=== PATIENT | female | born 1955 | race Caucasian/White ===

== ENCOUNTER 2019-08-11 10:24 | Inpatient (IN) ==
[2019-08-11] MEDS ORDERED: 0.9 % SODIUM CHLORIDE 1,000 ML IV ONE (10:50)
[2019-08-11] MEDS ORDERED: ONDANSETRON 4 MG/2 ML VIAL IV ONE (10:50)
[2019-08-11] MEDS ORDERED: metroNIDAZOLE 500 MG/100 ML BAG IV ONE (10:53)
[2019-08-11] MEDS ORDERED: CIPROFLOXACIN 400 MG/200 ML BAG IV ONE (10:54)
[2019-08-11] MEDS ORDERED: HYDROmorphone* 2 MG/ML VIAL IV SCH (11:00)
--- NOTE | 2019-08-11 11:05 | Emergency Department Note ---
Abdominal Pain HPI - General Chief Complaint: Flank Pain Stated Complaint: left flank pain nausea vomiting Time Seen by Provider: 08/11/19 10:34 Source: patient Mode of arrival: ambulatory Limitations: no limitations - History of Present Illness HPI Narrative: 64-year-old female presents with intractable left flank pain, and intractable nausea and vomiting. She was seen here on Monday and diagnosed with kidney stones as well as diverticulitis. States she just cannot stop vomiting and her pain is out of control. She cannot keep any of her medications down because of the vomiting as well. This includes her antibiotics. States her temperature go t up to 102.8 last night as well. Feels like she is getting worse rather than better. States she just cannot keep anything down. No diarrhea. No dysuria or frequency. Has been taking Zofran at home with no relief. Has tried to keep down the Flagyl and Cipro and it pain medication without success - Related Data Home Medications Medication Instructions Recorded Confirmed cholecalciferol (vitamin D3) 125 5,000 unit PO QDAY cap 10/20/16 06/14/19 mcg (5,000 unit) capsule omega-3 fatty acids 1,000 mg 1,000 mg PO QDAY 10/20/16 06/14/19 capsule lactobacillus combination no.8 3 3,000 mmu cells PO QDAY 06/14/19 billion cell capsule potassium gluconate 600 mg (99 mg) 600 mg PO QDAY 06/14/19 06/14/19 tablet Previous Rx's Medication Instructions Recorded simvastatin 20 mg tablet 20 mg PO QDAY #30 tab 06/08/18 blood pressure monitor See Rx Instructions .ROUTE 05/21/19 .MEDSUPPLY #1 each diltiazem HCl 120 mg 120 mg PO QAM #90 cap 06/14/19 capsule,extended release 24 hr Ciprofloxacin [Cipro] 500 mg PO BID #20 tab 08/09/19 Promethazine [Phenergan] 25 mg PO Q4-6HP PRN #20 tab 08/09/19 metroNIDAZOLE [Metronidazole] 500 mg PO TID #30 tab 08/09/19 oxyCODONE HCL [Oxycodone HCl] 5 mg PO Q4HP PRN #16 tab 08/09/19 Allergies Allergy/AdvReac Type Severity Reaction Status Date / Time Erythromycin Base Allergy Unknown Vomiting Verified 08/09/19 15:23 seafood Allergy Unknown Gastrointestinal Uncoded 06/14/19 12:48 Upset, itching Review of Systems All systems ED: reviewed and negative except as stated. Abdominal Pain PMH - Past Medical History [facility] Narrative: Medical History (Last Updated 08/09/19 @ 18:02 by Rodrigo Ann DO) Hypertension, essential (Chronic ~12/13/94) Hyperlipidemia (Chronic ~1994) Obesity (BMI 30.0-34.9) (Chronic) Anxiety, generalized (Chronic) Menopausal symptoms (Chronic) Recurrent sinus infections (Chronic) Situational depression (Chronic 1994) Mammogram normal (Acute) Cervical cancer (Resolved ~01/1983) Encounter for Health Maintenance Examination in Adult (Resolved) Gallbladder problem (Resolved 2007) Migraines (Resolved ~1995) Pneumonia (Resolved) Shingles (Resolved 12/2008) Sialadenitis (Resolved) Skin rash (Inactive) Vaginal discharge (Inactive) Past Surgical History (Last Reviewed 06/14/19 @ 12:54 by Jodi Pollock PA-C) H/O colonoscopy (Chronic 09/15/06) H/O: hysterectomy (Chronic 06/1983) History of cholecystectomy (Chronic 10/16/08) History of left knee surgery (Chronic 07/1989) - Social History Smoking status: Never smoker Alcohol use: Reports: Occasionally Drug use: Reports: none Physical Exam Limitations: no limitations General appearance: alert, tearful, other (Writhing around in pain) Head: atraumatic, normocephalic, normal inspection Eye: Present: normal appearance. Absent: conjunctival injection ENT: Present: mucous membranes moist Chest: Present: symmetric chest wall rise Respiratory: Present: normal lung sounds bilaterally. Absent: respiratory distress, rales/crackles, wheezes, accessory muscle use Cardiovascular: Present: regular rate, normal heart sounds Abdominal: Present: soft, tenderness (Left lower quadrant as well as left flank), normal bowel sounds. Absent: distention, guarding, rebound Back: Present: CVA tenderness (L). Absent: CVA tenderness (R) Neurological: Present: alert, oriented X3 Psychiatric: Present: normal affect Skin: Present: warm, dry, intact, normal color Course Course Narrative: At 13[address] I did speak with Dr[address] Renae who agrees to consult on this patient tomorrow morning. At 1310 I did speak with the hospitalist, Dr. Chilel who agrees to accept patient. Vital Signs Temperature 97.1 F 08/11/19 10:26 Pulse Rate 77 08/11/19 10:26 Respiratory Rate 18 08/11/19 10:26 Blood Pressure 143/62 08/11/19 10:26 Pulse Oximetry (%) 98 08/11/19 10:26 Temperature 97.1 F 08/11/19 10:26 Pulse Rate 66 08/11/19 11:32 Respiratory Rate 14 08/11/19 11:17 Blood Pressure 155/75 08/11/19 11:32 Pulse Oximetry (%) 100 08/11/19 11:32 Abdominal Pain - Lab Data Result diagrams: 08/11/19 11:03 08/11/19 11:03 Lab Results 08/11/19 08/11/19 08/11/19 Range/Units 11:03 11:03 11:03 WBC 14.9 H (4.50-11.00) K/mcL RBC 4.83 (3.59-5.38) M/mcL Hgb 13.7 (11.2-15.7) g/dL Hct 41.2 (34.1-44.9) % MCV 85.3 (80.0-100.0) fL MCH 28.4 (26.0-34.0) pg MCHC 33.3 (31.0-36.0) g/dL RDW 12.8 (11.5-14.5) % Plt Count 341 (140-440) K/mcL MPV 9.9 (7.4-10.4) fL Gran % 83.1 H (38.0-78.0) % Lymph % (Auto) 12.9 L (15.5-49.0) % Hitchcock % (Auto) 3.8 (1.0-12.0) % Eos % (Auto) 0 (0.0-7.0) % Baso % (Auto) 0.2 (0.0-2.0) % Gran # 12.39 H (1.80-8.00) K/mcL Lymph # (Auto) 1.92 (1.50-4.80) K/mcL Hitchcock # (Auto) 0.56 (0.10-0.90) K/mcL Eos # (Auto) 0 (0.00-0.70) K/mcL Baso # (Auto) 0.03 (0.00-0.30) K/mcL VBG Lactic Acid 2.3 H (0.5-2.0) mmol/L Sodium 133 (133-145) mmol/L Potassium 4.7 (3.3-5.1) mmol/L Chloride 95 L (96-108) mmol/L Carbon Dioxide 19 L (22-30) mmol/L Anion Gap 19.0 H (8-16) BUN 19 (8-23) mg/dl Creatinine 1.2 H (0.6-1.1) mg/dl GFR Calculation 47 Glucose 144 H (70-105) mg/dL Calcium 9.7 (8.6-10.4) mg/dl Total Bilirubin 0.7 (0.0-1.0) mg/dL AST 18 (0-37) U/l ALT 14 (0-40) U/l Alkaline Phosphatase 95 (39-117) U/L Total Protein 8.3 (5.9-8.4) gm/dL Albumin 3.9 (3.2-5.2) gm/dL Globulin 4.4 H (2.2-3.7) gm/dL Albumin/Globulin Ratio 0.9 L (1.0-2.3) Procalcitonin (<0.10) ng/mL 08/11/19 Range/Units 11:03 WBC (4.50-11.00) K/mcL RBC (3.59-5.38) M/mcL Hgb (11.2-15.7) g/dL Hct (34.1-44.9) % MCV (80.0-100.0) fL MCH (26.0-34.0) pg MCHC (31.0-36.0) g/dL RDW (11.5-14.5) % Plt Count (140-440) K/mcL MPV (7.4-10.4) fL Gran % (38.0-78.0) % Lymph % (Auto) (15.5-49.0) % Hitchcock % (Auto) (1.0-12.0) % Eos % (Auto) (0.0-7.0) % Baso % (Auto) (0.0-2.0) % Gran # (1.80-8.00) K/mcL Lymph # (Auto) (1.50-4.80) K/mcL Hitchcock # (Auto) (0.10-0.90) K/mcL Eos # (Auto) (0.00-0.70) K/mcL Baso # (Auto) (0.00-0.30) K/mcL VBG Lactic Acid (0.5-2.0) mmol/L Sodium (133-145) mmol/L Potassium (3.3-5.1) mmol/L Chloride (96-108) mmol/L Carbon Dioxide (22-30) mmol/L Anion Gap (8-16) BUN (8-23) mg/dl Creatinine (0.6-1.1) mg/dl GFR Calculation Glucose (70-105) mg/dL Calcium (8.6-10.4) mg/dl Total Bilirubin (0.0-1.0) mg/dL AST (0-37) U/l ALT (0-40) U/l Alkaline Phosphatase (39-117) U/L Total Protein (5.9-8.4) gm/dL Albumin (3.2-5.2) gm/dL Globulin (2.2-3.7) gm/dL Albumin/Globulin Ratio (1.0-2.3) Procalcitonin 0.10 (<0.10) ng/mL Disposition 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
[2019-08-11 12:05] LABS: Basophils # (Auto) 0.03 K/mcL (0.00-0.30); Basophils % (Auto) 0.2 % (0.0-2.0); Eosinophils # (Auto) 0 K/mcL (0.00-0.70); Eosinophils % (Auto) 0 % (0.0-7.0); Granulocytes % (Auto) 83.1 % (38.0-78.0); Hematocrit 41.2 % (34.1-44.9); Hemoglobin 13.7 g/dL (11.2-15.7); Lymphocytes # (Auto) 1.92 K/mcL (1.50-4.80); Lymphocytes % (Auto) 12.9 % (15.5-49.0); Mean Cell Volume 85.3 fL (80.0-100.0); Mean Corpuscular HGB Conc 33.3 g/dL (31.0-36.0); Mean Platelet Volume 9.9 fL (7.4-10.4); Monocytes # (Auto) 0.56 K/mcL (0.10-0.90); Monocytes % (Auto) 3.8 % (1.0-12.0); Platelet Count 341 K/mcL (140-440); RBC 4.83 M/mcL (3.59-5.38); Red Cell Distribution Width 12.8 % (11.5-14.5); WBC 14.9 K/mcL (4.50-11.00)
[2019-08-11 12:25] LABS: ALT/SGPT 14 U/l (0-40); AST/SGOT 18 U/l (0-37); Albumin 3.9 gm/dL (3.2-5.2); Albumin/Globulin Ratio 0.9 (1.0-2.3); Alkaline Phosphatase 95 U/L (39-117); Bilirubin,Total 0.7 mg/dL (0.0-1.0); Blood Urea Nitrogen 19 mg/dl (8-23); Calcium 9.7 mg/dl (8.6-10.4); Carbon Dioxide 19 mmol/L (22-30); Globulin 4.4 gm/dL (2.2-3.7); Glomerular Filtration Rate 47; Glucose 144 mg/dL (70-105)
[2019-08-11 12:33] LABS: Chloride 95 mmol/L (96-108)
[2019-08-11] MEDS ORDERED: morphine 4 MG/ML VIAL IV PRN (14:36)
[2019-08-11] MEDS ORDERED: ACETAMINOPHEN 325 MG TABLET PO PRN (14:36)
[2019-08-11] MEDS ORDERED: ONDANSETRON 4 MG/2 ML VIAL IV PRN (14:36)
[2019-08-11] MEDS ORDERED: HYDROmorphone* 2 MG/ML VIAL IV PRN (14:36)
[2019-08-11] MEDS ORDERED: hydrALAZINE 20 MG/ML VIAL IV PRN (14:50)
--- NOTE | 2019-08-11 15:01 | Internal Med History&Physical ---
Medical - H&P: [facility] Patient information: Note initiated : 08/11/19 at 2:54 pm Service Date, if different from initiated Date: [] Patient: Siria Villarreal a 64 y/o F admitted on 08/11/19 for left flank pain nausea vomiting. Chief Complaint: [Abdominal pain for 1 week] History of present illness: Ms. Villarreal is a 64 year old F with a history of high blood pressure who presented to the ER due to abdominal pain for 1 week. Patient states that she has been having left lower abdominal pain associated with nausea and vomiting for 1 week. The pain is a sharp constant pain and 9 out of 10 in severity. Patient also states that she has been having watery diarrhea, 4-5 times per day for 4 days. Days ago she started to feel left flank pain which is sharp in nature. She may has some fever and chills at times. Otherwise she denies headache, dizziness, chest pain, shortness of breath, or dysuria. Patient came to the ER on Monday (2 days ago), she was diagnosed with diverticulitis and kidney stone which were treated oral antibiotics. Today her nausea and vomiting are so severe. She cannot take her oral medications. Review of systems: Positive for abdominal pain, nausea, vomiting, diarrhea. All other systems were reviewed and are negative. Medical - H&P: [facility] Medical history: High blood pressure Family history: reviewed and not pertinent (Mother has a atrial fibrillation; father and heart problems) Social history: Denies a smoking, drinking alcohol or using drugs. Medical - H&P: Meds Home Medications Medication Instructions Recorded Confirmed Type cholecalciferol (vitamin D3) 125 5,000 unit PO QDAY cap 10/20/16 06/14/19 History mcg (5,000 unit) capsule omega-3 fatty acids 1,000 mg 1,000 mg PO QDAY 10/20/16 06/14/19 History capsule simvastatin 20 mg tablet 20 mg PO QDAY #30 tab 06/08/18 06/14/19 Rx blood pressure monitor See Rx Instructions .ROUTE 05/21/19 06/14/19 Rx .MEDSUPPLY #1 each diltiazem HCl 120 mg 120 mg PO QAM #90 cap 06/14/19 06/14/19 Rx capsule,extended release 24 hr lactobacillus combination no.8 3 3,000 mmu cells PO QDAY 06/14/19 History billion cell capsule potassium gluconate 600 mg (99 mg) 600 mg PO QDAY 06/14/19 06/14/19 History tablet Ciprofloxacin [Cipro] 500 mg PO BID #20 tab 08/09/19 Rx Promethazine [Phenergan] 25 mg PO Q4-6HP PRN #20 tab 08/09/19 Rx metroNIDAZOLE [Metronidazole] 500 mg PO TID #30 tab 08/09/19 Rx oxyCODONE HCL [Oxycodone HCl] 5 mg PO Q4HP PRN #16 tab 08/09/19 Rx Allergies Allergy/AdvReac Type Severity Reaction Status Date / Time Erythromycin Base Allergy Unknown Vomiting Verified 08/09/19 15:23 seafood Allergy Unknown Gastrointestinal Uncoded 06/14/19 12:48 Upset, itching Medical - H&P: Exam - Constitutional Vitals: Temp Pulse Resp BP Pulse Ox 97.8 F 79 18 128/75 93 08/11/19 13:52 08/11/19 13:52 08/11/19 13:52 08/11/19 13:52 08/11/19 13:52 - Other Additional findings: General - NAD, sitting up in bed, well groomed Eyes - PERRLA, EOM intact ENT no rhinorrhea, no noticeable or palpable swelling, no redness or rash around throat or on face Neck supple, no JVD, no thyromegaly Respiratory: Lungs - no use of accessory muscles, clear to auscultation, no crackles or wheezes. Cardiovascular - RRR no m/r/g, GI - Normal bowel sounds, no distended, soft. tenderness over LLQ. No CVA tenderness Extremeties - No edema, cyanosis or clubbing Hemo/lymphatic/immune no lymphadenopathy Neurological Alert and oriented x 3, CN 2-12 grossly intact. Psychiatry flat affect Medical - H&P: Reslt - Labs CBC & Chem 7: 08/11/19 11:03 08/11/19 11:03 Labs: Short CBC 08/11/19 Range/Units 11:03 WBC 14.9 H (4.50-11.00) K/mcL Hgb 13.7 (11.2-15.7) g/dL Hct 41.2 (34.1-44.9) % Plt Count 341 (140-440) K/mcL BMP 08/11/19 11:03 Sodium 133 Potassium 4.7 Chloride 95 L Carbon Dioxide 19 L BUN 19 Creatinine 1.2 H Glucose 144 H Calcium 9.7 Liver Function 08/11/19 Range/Units 11:03 Total Bilirubin 0.7 (0.0-1.0) mg/dL AST 18 (0-37) U/l ALT 14 (0-40) U/l Alkaline Phosphatase 95 (39-117) U/L Albumin 3.9 (3.2-5.2) gm/dL Medical - H&P: A/P - Narrative A/P Narrative: Assessment: 1. Acute diverticulitis 2. Kidney stone with mild hydronephrosis 3. DIANA 4. HTN 5. Pulmonary nodule Plan: 1. Abdominal CT showed Acute diverticulitis in the mid descending colon with a phlegmon developing around a large diverticulum. 4 mm calculus in the left ureteropelvic junction causing mild hydronephrosis Blood culture Zosyn N.p.o. IV Fluid Pain management including IV dilaudid 2. Urology consulted for Kidney stone with mild hydronephrosis 3. Creatinine mildly elevated. Could be due to prerenal causes IV fluid Avoid nephrotoxic meds and contrast Repeat renal function in the morning 4. Monitor blood pressure Hydralazine as needed 5. Abd CT showed 5 mm noncalcified lung nodule in the posterior basal segment of the left lower lobe. CT chest ordered 6. DVT prophylaxis: Heparin 7. CODE STATUS:full
[2019-08-11 16:22] LABS: Appearance,Urine HAZY; Bacteria,Urine 0 /hpf (0); Bilirubin,Urine NEG (NEG); Color,Urine YELLOW; Culture Indicated,Urine NO; Glucose,Urine (UA) NEGATIVE (NEG); Ketones,Urine 20 mg/dL (NEG); Leukocyte Esterase,Urine 75 /uL (NEG); Mucus,Urine MOD /hpf (0); Nitrate,Urine NEG (NEG); Protein,Urine 30 mg/dL (NEG); Specific Gravity,Urine 1.023 (1.000-1.035); Urine Blood 0.03 mg/dL (<0.03); Urine Hyaline Cast 6 /lpf (0-2); Urine RBC 12 /hpf (0-1); Urine Squamous Epithelial Cell 5 /hpf (0-4); Urine Transitional Epi Cells < 1 /hpf (0-2); Urine WBC 2 /hpf (0-4); Urobilinogen,Urine NEG (NEG)
[2019-08-11] MEDS: PIPERACILLIN SODIUM/TAZOBACTAM 3.375 GM in DEXTROSE 5% IN WATER 50 ML IV SCH ×2 (17:45→19:52)
[2019-08-11] MEDS: 0.9 % SODIUM CHLORIDE 1,000 ML IV SCH (17:50)
[2019-08-11] MEDS ORDERED: METOCLOPRAMIDE 10 MG/2 ML VIAL IV PRN (18:27)
[2019-08-11] MEDS: HEPARIN 5,000 UNIT/ML VIAL SQ SCH (19:52)
[2019-08-11] MEDS: 0.9 % SODIUM CHLORIDE 10 ML SYRINGE IV SCH (20:33)
--- NOTE | 2019-08-11 20:34 | Cat Scan Report ---
History: Pulmonary nodule seen in the left lower lobe on recent abdomen CT, history of cervical cancer, left flank pain nausea and vomiting TECHNIQUE: The chest was imaged without contrast at 2.5 mm intervals. Sagittal coronal and axial MIPS images were created. Radiation exposure was limited using dose reduction technology. FINDINGS: There are multiple thick bands of atelectasis in both lower lobes and inferiorly medially in the right middle lobe. There is also moderate involvement in the inferior segment of lingula. These are new finding since the prior abdomen CT done on 08/09/19. The previously seen 5 mm nodule in the posterior basal segment left lower lobe is now obscured by the superimposed atelectasis. Interspersed between the bands of atelectasis there are few small zones of groundglass alveolar opacity. The upper lobes are clear, except for a 1.3 cm bulla centrally in the right upper lobe. There is no other lung mass. No pleural effusion is present. No abnormally enlarged lymph nodes are present. The heart is normal in size and contour. The aorta is normal in caliber. Small hiatus hernia is noted. IMPRESSION: Extensive discoid atelectasis in both lung bases. This is a new development since 08/09/19. This may be related to obstruction of small peripheral airways from bronchitis or mucous plugging. Pain, limiting a patient's ability to take a deep breath may also result in atelectasis. Possible small groundglass alveolar opacities in the lower lobes. There might be superimposed pneumonia. Interpreted and Authenticated by: Perry Arriaga 08/11/19
[2019-08-12] MEDS: PIPERACILLIN SODIUM/TAZOBACTAM 3.375 GM in DEXTROSE 5% IN WATER 50 ML IV SCH ×5 (00:02→23:27)
[2019-08-12] MEDS: 0.9 % SODIUM CHLORIDE 1,000 ML IV SCH ×4 (00:04→19:06)
[2019-08-12 05:47] LABS: Basophils # (Auto) 0.03 K/mcL (0.00-0.30); Basophils % (Auto) 0.2 % (0.0-2.0); Eosinophils # (Auto) 0.08 K/mcL (0.00-0.70); Eosinophils % (Auto) 0.7 % (0.0-7.0); Granulocytes % (Auto) 73.3 % (38.0-78.0); Hematocrit 36.7 % (34.1-44.9); Hemoglobin 11.8 g/dL (11.2-15.7); Lymphocytes # (Auto) 2.23 K/mcL (1.50-4.80); Lymphocytes % (Auto) 18.4 % (15.5-49.0); Mean Cell Volume 87.4 fL (80.0-100.0); Mean Corpuscular HGB Conc 32.2 g/dL (31.0-36.0); Mean Platelet Volume 9.9 fL (7.4-10.4); Monocytes % (Auto) 7.4 % (1.0-12.0); Platelet Count 325 K/mcL (140-440); Red Cell Distribution Width 12.9 % (11.5-14.5); WBC 12.1 K/mcL (4.50-11.00)
[2019-08-12 06:12] LABS: ALT/SGPT 12 U/l (0-40); AST/SGOT 16 U/l (0-37); Albumin 3.1 gm/dL (3.2-5.2); Albumin/Globulin Ratio 0.9 (1.0-2.3); Alkaline Phosphatase 74 U/L (39-117); Bilirubin,Total 0.6 mg/dL (0.0-1.0); Blood Urea Nitrogen 17 mg/dl (8-23); Calcium 8.5 mg/dl (8.6-10.4); Chloride 102 mmol/L (96-108); Globulin 3.6 gm/dL (2.2-3.7); Glomerular Filtration Rate 59; Glucose 85 mg/dL (70-105)
[2019-08-12] MEDS: 0.9 % SODIUM CHLORIDE 10 ML SYRINGE IV SCH ×3 (06:14→21:48)
[2019-08-12 06:15] LABS: Carbon Dioxide 23 mmol/L (22-30)
--- NOTE | 2019-08-12 07:49 | General Surgery Progress Note ---
Surgical - Auxillary Note - Subjective Patient Information: Note initiated : 08/12/19 at 7:46 am Service Date, if different from initiated Date: [] Patient: Siria Villarreal 64 y/o F admitted on 08/11/19 for left flank pain nausea vomiting. Chief Complaint: [] Full consult dictated. Patient with 3 - 4 mm stone at Left UPJ. no longer in pain. Stone may have moved. No intervention needed. will f/u as outpatient.
--- NOTE | 2019-08-12 08:15 | Consultation ---
DATE OF CONSULTATION: 08/12/2019 HISTORY OF PRESENT ILLNESS: The patient is a 64-year-old lady who had a history of diverticulitis. Yesterday she had sudden onset of severe pain, was seen in the emergency room, and a CT scan was obtained which did show a 3-4 mm stone at the left ureteropelvic junction. She did have some hydronephrosis. She had urgency and frequency of urination. She never had any stones before. She states she has not been drinking as much fluid. She was admitted to the hospital for IV hydration. She has not had pain since yesterday evening, and I have been asked to see her. PAST MEDICAL HISTORY: Hypertension, diverticulitis, stones, and obesity. FAMILY HISTORY: Atrial fibrillation. Father with cardiac problems. SOCIAL HISTORY: Denies smoking or drinking. CURRENT MEDICATIONS: As per dictated REVIEW OF SYSTEMS: CARDIAC: Denies any chest pain. RESPIRATORY: No wheezing, coughing, or asthma. PSYCHOLOGICAL: Some depression. The rest of a 12-point review of systems is negative. PHYSICAL EXAMINATION: GENERAL: This is a very pleasant lady in no apparent distress, lying in bed. VITAL SIGNS: As listed per nurse's notes. HEENT: Atraumatic, normocephalic. Extraocular movements are intact. Pupils equal, reactive to light and accommodation. LUNGS: Clear to auscultation. HEART: Regular rate and rhythm. ABDOMEN: Soft. Positive left lower quadrant tenderness. Slight left CVA tenderness. GENITOURINARY: Deferred. EXTREMITIES: Without clubbing, cyanosis or edema. NEUROLOGIC: Cranial nerves II-XII intact. IMPRESSION: The patient with a small left ureteral stone. The CT scan did show that it was in the ureteropelvic junction. It did not show up on regular x-ray. I have gone over this with her, and I feel that this may have passed either down the ureter or possibly up into the kidney. She is not symptomatic at this point, but the symptoms may return. With the size of the stone, I do not feel any intervention is needed. When she is ready for discharge, I would send her home with medications, possibly Flomax to help her pass the stone. I will follow up with her in the office. I have answered all of her questions. Jasson Job ID: [id number] Doc ID: [id number] Roberth Renae MD
[2019-08-12] MEDS: HEPARIN 5,000 UNIT/ML VIAL SQ SCH ×2 (09:06→19:10)
--- NOTE | 2019-08-12 14:03 | Internal Med Progress Note ---
Medical - PN: Subj Patient information: Note initiated : 08/12/19 at 1:58 pm Service Date, if different from initiated Date: [] Patient: Siria Villarreal a 64 y/o F admitted on 08/11/19 for left flank pain nausea vomiting. Chief Complaint: [] Interval history: Ms. Villarreal is a 64 year old F with a history of high blood pressure who presented to the ER due to abdominal pain for 1 week. Patient states that she has been having left lower abdominal pain associated with nausea and vomiting for 1 week. The pain is a sharp constant pain and 9 out of 10 in severity. Patient also states that she has been having watery diarrhea, 4-5 times per day for 4 days. Days ago she started to feel left flank pain which is sharp in nature. She may has some fever and chills at times. Otherwise she denies headache, dizziness, chest pain, shortness of breath, or dysuria. Patient came to the ER on Monday (2 days ago), she was diagnosed with diverticulitis and kidney stone which were treated oral antibiotics. Today her nausea and vomiting are so severe. She cannot take her oral medications. 08/11 She feels better, less pain from LLQ and L flank. She has mild nausea. Otherwise she denies fever/chills. Urology Dr. Renae saw her - no intervention for her kidney stone. Dr. Renae will f/u with her in office. - Constitutional Vitals: Vital Signs Temp Pulse Resp BP Pulse Ox 98.3 F 74 20 148/88 94 08/12/19 12:00 08/12/19 12:00 08/12/19 12:00 08/12/19 12:00 08/12/19 12:00 Period Temp Pulse Resp BP Sys/Garibay Pulse Ox Last 24 Hr 97.8 F-99.2 F 70-78 14-20 105-148/56-88 94-94 Intake and Output 08/11/19 08/12/19 08/12/19 21:59 05:59 13:59 Intake Total 100 1050 50 Output Total 250 700 100 Balance -150 350 -50 Weight 95.073 kg 95.073 kg Patient Weight 08/13/19 05:59 Weight 95.073 kg Intake & Output: Intake & Output 08/11/19 08/12/19 08/12/19 21:59 05:59 13:59 Intake Total 100 1050 50 Output Total 250 700 100 Balance -150 350 -50 Weight 95.073 kg 95.073 kg Intake: IV 100 1050 50 Sodium Chloride 0.9% 1,000 ml @ 1000 100 mls/hr IV .Q10H NOELLE Rx#: [id number] Zosyn 3.375 gm In Dextrose 5% 100 50 50 in Water 50 ml @ 100 mls/hr IV Q6H NOELLE Rx#:[id number] Output: Void Amount 250 700 100 Other: Urine Appearance Clear Urine Color Dark Yellow Straw Urine Odor Normal Stool Size Small Small Stool Color Brown Brown Green Stool Consistency Soft Liquid Formed # Voids 1 1 # Bowel Movements 1 1 # Emeses 20 - Additional findings Additional findings: General - NAD, sitting up in bed, well groomed Eyes - PERRLA, EOM intact ENT no rhinorrhea, no noticeable or palpable swelling, no redness or rash around throat or on face Neck supple, no JVD, no thyromegaly Respiratory: Lungs - no use of accessory muscles, clear to auscultation, no crackles or wheezes. Cardiovascular - RRR no m/r/g, GI - Normal bowel sounds, no distended, soft. tenderness over LLQ. No CVA tenderness Extremeties - No edema, cyanosis or clubbing Hemo/lymphatic/immune no lymphadenopathy Neurological Alert and oriented x 3, CN 2-12 grossly intact. Psychiatry flat affect Medical - PN: Obj Da - Labs CBC & Chem 7: 08/12/19 04:26 08/12/19 04:26 Labs: Abnormal Lab Results 08/12/19 08/12/19 08/11/19 04:26 04:26 15:00 WBC 12.1 H Gran % Lymph % (Auto) Gran # 8.87 H VBG Lactic Acid Chloride Carbon Dioxide Anion Gap Creatinine Glucose Calcium 8.5 L Albumin 3.1 L Globulin Albumin/Globulin Ratio 0.9 L Urine Protein 30 A Urine Ketones 20 A Urine Occult Blood 0.03 A Ur Leukocyte Esterase 75 A Urine RBC 12 H Ur Squamous Epith Cells 5 H Hyaline Casts 6 H 08/11/19 08/11/19 08/11/19 11:03 11:03 11:03 WBC 14.9 H Gran % 83.1 H Lymph % (Auto) 12.9 L Gran # 12.39 H VBG Lactic Acid 2.3 H Chloride 95 L Carbon Dioxide 19 L Anion Gap 19.0 H Creatinine 1.2 H Glucose 144 H Calcium Albumin Globulin 4.4 H Albumin/Globulin Ratio 0.9 L Urine Protein Urine Ketones Urine Occult Blood Ur Leukocyte Esterase Urine RBC Ur Squamous Epith Cells Hyaline Casts Meds: Medications Acetaminophen (Tylenol) 650 mg PO Q6HP PRN; Protocol PRN Reason: Per Pain Protocol/Fever > 101 Heparin Sodium (Porcine) (Heparin) 5,000 unit SQ Q12 [facility] Last Admin: 08/12/19 09:06 Dose: 5,000 unit Documented by: Hydralazine HCl (Apresoline) 10 mg IV Q4HP PRN PRN Reason: Hypertension Hydromorphone HCl (Dilaudid) 0.5 mg IV Q2HP PRN; Protocol PRN Reason: PAIN LEVEL > 6 Sodium Chloride (Sodium Chloride 0.9%) 1,000 mls @ 100 mls/hr IV .Q10H [facility] Last Admin: 08/12/19 04:57 Dose: 100 mls/hr Documented by: Piperacillin Sod/Tazobactam (Sod 3.375 gm/ Dextrose) 50 mls @ 100 mls/hr IV Q6H [facility]; Protocol Last Admin: 08/12/19 12:30 Dose: 100 mls/hr Documented by: Metoclopramide HCl (Reglan) 5 mg IV Q6HP PRN PRN Reason: Nausea And Vomiting Last Admin: 08/11/19 18:40 Dose: 5 mg Documented by: Morphine Sulfate (Morphine) 2 mg IV Q4HP PRN; Protocol PRN Reason: PAIN LEVEL 3-6 Non-Formulary Medication (Adult Probiotic) 3,000 mmu cells PO QDAY [facility] Ondansetron HCl (Zofran) 4 mg IV Q6HP PRN PRN Reason: Nausea And Vomiting Last Admin: 08/11/19 17:04 Dose: 4 mg Documented by: Sodium Chloride (Saline Flush) 10 ml IV Q8 [facility] Last Admin: 08/12/19 06:14 Dose: Not Given Documented by: Medical - PN: A/P - Time Spent With Patient Total time spent is greater than 50% in coordination of care (as documented) at patient's floor/unit and/or counseling patient: - Narrative A/P Narrative: Assessment: 1. Acute diverticulitis 2. Kidney stone with mild hydronephrosis 3. DIANA 4. HTN 5. Pulmonary nodule Plan: 1. Abdominal CT showed Acute diverticulitis in the mid descending colon with a phlegmon developing around a large diverticulum. 4 mm calculus in the left ureteropelvic junction causing mild hydronephrosis Blood culture - negative Zosyn clear liquid, advance as tolerated IV Fluid Pain management including IV dilaudid 2. Urology Dr. Renae saw her - no intervention for her kidney stone. Dr. Renae will f/u with her in office. 3. Creatinine normalized. IV fluid Avoid nephrotoxic meds and contrast Repeat renal function in the morning 4. Monitor blood pressure Hydralazine as needed 5. Abd CT showed 5 mm noncalcified lung nodule in the posterior basal segment of the left lower lobe. 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 This is a new development since 08/09/19. This may be related to obstruction of small peripheral airways from bronchitis or mucous plugging. Pain, limiting a patient's ability to take a deep breath may also result in atelectasis. Possible small groundglass alveolar opacities in the lower lobes. There might be superimposed pneumonia. Procalcitonin 0.10. I do not feel that she has a pneumonia. She is on zosyn for diverticulitis. Monitor 6. DVT prophylaxis: Heparin 7. CODE STATUS:full
[2019-08-13] MEDS: 0.9 % SODIUM CHLORIDE 1,000 ML IV SCH ×2 (03:04→05:33)
[2019-08-13] MEDS: PIPERACILLIN SODIUM/TAZOBACTAM 3.375 GM in DEXTROSE 5% IN WATER 50 ML IV SCH ×2 (05:33→11:44)
[2019-08-13] MEDS: 0.9 % SODIUM CHLORIDE 10 ML SYRINGE IV SCH (05:33)
[2019-08-13 06:55] LABS: Basophils # (Auto) 0.02 K/mcL (0.00-0.30); Basophils % (Auto) 0.3 % (0.0-2.0); Eosinophils % (Auto) 2.8 % (0.0-7.0); Granulocytes % (Auto) 60.2 % (38.0-78.0); Hematocrit 36.6 % (34.1-44.9); Hemoglobin 11.6 g/dL (11.2-15.7); Lymphocytes # (Auto) 2.05 K/mcL (1.50-4.80); Lymphocytes % (Auto) 28.5 % (15.5-49.0); Mean Cell Volume 87.8 fL (80.0-100.0); Mean Corpuscular HGB Conc 31.7 g/dL (31.0-36.0); Mean Platelet Volume 9.8 fL (7.4-10.4); Monocytes # (Auto) 0.59 K/mcL (0.10-0.90); Monocytes % (Auto) 8.2 % (1.0-12.0); Platelet Count 288 K/mcL (140-440); RBC 4.17 M/mcL (3.59-5.38); Red Cell Distribution Width 12.7 % (11.5-14.5); WBC 7.2 K/mcL (4.50-11.00)
[2019-08-13] MEDS ORDERED: LACTOBACILLUS 1 CAPSULE PO SCH (09:00)
[2019-08-13] MEDS: HEPARIN 5,000 UNIT/ML VIAL SQ SCH (09:27)
[2019-08-13 10:58] LABS: ALT/SGPT 8 U/l (0-40); AST/SGOT 18 U/l (0-37); Albumin 2.9 gm/dL (3.2-5.2); Albumin/Globulin Ratio 0.9 (1.0-2.3); Alkaline Phosphatase 64 U/L (39-117); Bilirubin,Total 0.3 mg/dL (0.0-1.0); Blood Urea Nitrogen 13 mg/dl (8-23); Calcium 8.5 mg/dl (8.6-10.4); Carbon Dioxide 22 mmol/L (22-30); Chloride 103 mmol/L (96-108); Globulin 3.3 gm/dL (2.2-3.7); Glomerular Filtration Rate 67; Glucose 79 mg/dL (70-105)
--- NOTE | 2019-08-13 11:51 | Discharge Summary ---
Medical - DS: Prov Patient information: Note initiated : 08/13/19 at 11:44 am Service Date, if different from initiated Date: [] Patient: Siria Villarreal a 64 y/o F admitted on 08/11/19 for left flank pain nausea vomiting. Chief Complaint: [] refer to HP by Wild Chilel M.D.> 08/11/19 Ms. Villarreal is a 64 year old F with a history of high blood pressure who presented to the ER due to abdominal pain for 1 week. Patient states that she has been having left lower abdominal pain associated with nausea and vomiting for 1 week. The pain is a sharp constant pain and 9 out of 10 in severity. Patient also states that she has been having watery diarrhea, 4-5 times per day for 4 days. Days ago she started to feel left flank pain which is sharp in nature. She may has some fever and chills at times. Otherwise she denies headache, dizziness, chest pain, shortness of breath, or dysuria. Patient came to the ER on Monday (2 days ago), she was diagnosed with diverticulitis and kidney stone which were treated oral antibiotics. Today her nausea and vomiting are so severe. She cannot take her oral medications. Date of admission: 08/11/19 13:45 Discharge date: 08/13/19 Primary care physician: Jodi Lo-MILY Pollock Consults: 08/12/19 07:00 Consult to Physician [CONS] Routine Comment: Consulting Provider: Roberth Renae Reason For Exam: Physician to Consult Medical - DS: Meds - Discharge Medications Active and Home Medications: Home Medications cholecalciferol (vitamin D3) 125 mcg (5,000 unit) capsule 5,000 unit PO QDAY c ap 10/20/16 [History Confirmed 08/11/19 Last Taken 05/15/19] lactobacillus combination no.8 3 billion cell capsule 3,000 mmu cells PO QDAY 06/14/19 [History Confirmed 08/11/19 Last Taken Unknown] Ciprofloxacin [Cipro] 500 mg PO BID #20 tab 08/09/19 [Rx Confirmed 08/11/19 Last Taken 1 Day Ago ~08/10/19 500 mg BID] Promethazine [Phenergan] 25 mg PO Q4-6HP PRN #20 tab 08/09/19 [Rx Confirmed 08/11/19 Last Taken Unknown] metroNIDAZOLE [Metronidazole] 500 mg PO TID #30 tab 08/09/19 [Rx Confirmed 08/11/19 Last Taken 1 Day Ago ~08/10/19] oxyCODONE HCL [Oxycodone HCl] 5 mg PO Q4HP PRN #16 tab 08/09/19 [Rx Confirmed 08/11/19 Last Taken 1 Day Ago ~08/10/19] Medical - DS: Hosp Hospital Course: 1. Acute diverticulitis 2. Kidney stone with mild hydronephrosis 3. DIANA 4. HTN 5. Pulmonary nodule Plan: 1. Abdominal CT showed Acute diverticulitis in the mid descending colon with a phlegmon developing around a large diverticulum. 4 mm calculus in the left ureteropelvic junction causing mild hydronephrosis Blood culture - negative Zosyn clear liquid, advance as tolerated IV Fluid Pain management including IV dilaudid 2. Urology Dr. Renae saw her - no intervention for her kidney stone. Dr. Renae will f/u with her in office. 3. Creatinine normalized. IV fluid Avoid nephrotoxic meds and contrast Repeat renal function in the morning 4. Monitor blood pressure Hydralazine as needed 5. Abd CT showed 5 mm noncalcified lung nodule in the posterior basal segment of the left lower lobe. 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 This is a new development since 08/09/19. This may be related to obstruction of small peripheral airways from bronchitis or mucous plugging. Pain, limiting a patient's ability to take a deep breath may also result in atelectasis. Possible small groundglass alveolar opacities in the lower lobes. There might be superimposed pneumonia. Procalcitonin 0.10. I do not feel that she has a pneumonia. She is on zosyn for diverticulitis. Monitor 08/11 She feels better, less pain from LLQ and L flank. She has mild nausea. Otherwise she denies fever/chills. Urology Dr. Renae saw her - no intervention for her kidney stone. Dr. Renae will f/u with her in office. 08/12 Pt feels much better, much less pain. Denies n/v/d. No headache, dizziness, chest pain, dysuria or sob. She is on clear now which she tolerated. WBC normalized today. afebrile. Vital signs are stable. She will be discharged on oral abx x 10 days. She needs to f/u with pcp, GI (may need colonoscopy) and urology. If you have more pain, fever or does not feel well call pcp or go to ER immediately. She need to stay clear at least one more day and then transit to full liquid. Discharge diagnosis: Acute diverticulitis and Kidney stone with mild hydronephrosis - Time Spent with Patient Total time spent providing and/or coordinating discharge services: Greater than 30 minutes Medical - DS: Exam - Constitutional Vitals: Vital Signs Temp Pulse Resp BP Pulse Ox 08/13/19 07:47 97.9 F 65 18 127/68 95 08/13/19 03:02 98.0 F 62 16 137/73 96 08/12/19 23:27 98.1 F 67 16 140/76 93 08/12/19 19:30 98.3 F 73 18 140/82 94 08/12/19 18:58 16 08/12/19 16:00 98.1 F 70 20 144/73 97 08/12/19 12:00 98.3 F 74 20 148/88 94 Intake and Output 08/12/19 08/13/19 08/13/19 21:59 05:59 13:59 Intake Total 1290 1570 Output Total 930 Balance 360 1570 Intake: IV 1050 1050 Sodium Chloride 0.9% 1,000 ml @ 1000 1000 100 mls/hr IV .Q10H NOELLE Rx#: [id number] Zosyn 3.375 gm In Dextrose 5% 50 50 in Water 50 ml @ 100 mls/hr IV Q6H NOELLE Rx#:[id number] Oral 240 520 Output: Void Amount 930 Other: Meal chicken broth Percent of Meal Consumed 100% Feeding Ability Assist with Tray Set Up Urine Color Straw Urine Odor Normal Stool Size Moderate Stool Color Brown Stool Consistency Watery Liquid Loose # Voids 2 # of times incontinent of 1 Bowels Weight 96.162 kg - Other Additional findings: General - NAD, sitting up in bed, well groomed Eyes - PERRLA, EOM intact ENT no rhinorrhea, no noticeable or palpable swelling, no redness or rash around throat or on face Neck supple, no JVD, no thyromegaly Respiratory: Lungs - no use of accessory muscles, clear to auscultation, no crackles or wheezes. Cardiovascular - RRR no m/r/g, GI - Normal bowel sounds, no distended, soft. tenderness over LLQ (improved). No CVA tenderness Extremeties - No edema, cyanosis or clubbing Hemo/lymphatic/immune no lymphadenopathy Neurological Alert and oriented x 3, CN 2-12 grossly intact. Psychiatry flat affect Medical - DS: Data Labs on day of discharge: Labs from last 24 hours 08/13/19 08/13/19 05:20 05:20 WBC 7.2 RBC 4.17 Hgb 11.6 Hct 36.6 MCV 87.8 MCH 27.8 MCHC 31.7 RDW 12.7 Plt Count 288 MPV 9.8 Gran % 60.2 Lymph % (Auto) 28.5 [place] % (Auto) 8.2 Eos % (Auto) 2.8 Baso % (Auto) 0.3 Gran # 4.34 Lymph # (Auto) 2.05 [place] # (Auto) 0.59 Eos # (Auto) 0.20 Baso # (Auto) 0.02 Sodium 136 Potassium 4.2 Chloride 103 Carbon Dioxide 22 Anion Gap 11.0 BUN 13 Creatinine 0.9 GFR Calculation 67 Glucose 79 Calcium 8.5 L Total Bilirubin 0.3 AST 18 ALT 8 Alkaline Phosphatase 64 Total Protein 6.2 Albumin 2.9 L Globulin 3.3 Albumin/Globulin Ratio 0.9 L Preliminary micro results at discharge 08/11/19 11:03 Blood Culture - Preliminary Blood 08/11/19 11:10 Blood Culture - Preliminary Blood Medical - DS: A/P - Patient/Caregiver Discharge Instructions Activity: increase activity as tolerated Diet: Clear Liquid Prescriptions: Ciprofloxacin [Cipro] 500 mg PO BID 10 Days #20 tab Transmission Status: Pending to [facility] 2005 metroNIDAZOLE [Metronidazole] 500 mg PO TID 10 Days #30 tab Transmission Status: Pending to [facility] 2005 - Follow up Plan Follow up with: Jodi Huntley PA-C [Primary Care Provider] - Roberth Renae MD [Physician] - GI [Other] (in 4-6 weeks. ) Disposition: Home, Self-Care Prognosis: Fair Rehab Potential: Fair
== END 2019-08-13 13:08 | disposition home or self-care (01) | DRG 392 ==
LOC: ED 10:24 → MEDSUR 13:45
PROVIDERS: ADMIT Internal Medicine; ATTEND Internal Medicine